=== PATIENT | male | born 1985 | race African-American/Black ===

== ENCOUNTER 2017-03-05 18:03 | Emergency (ER) | payer SELFPAY ==
[2017-03-05 18:08] VITALS: BP 132/78; BMI 34.8
--- NOTE | 2017-03-05 18:35 | DR.GENAD ---
HPI - PCP Primary Care Physician: TORI - HPI Comment HPI Comment: HISTORY BELOW. - Complaint/Symptoms Chief Complaint Doctors Comments: RASH ABDOMINAL WALL TIMES 3 DAYS. IT IS RED, FIRM AND WARM IT IS PAINFUL. NO TENDERNESS. Chief Complaint:: PT C/O RASH TO ABD THAT HAS BEEN THERE FOR 3 DAYS. PT STATES IT IS NOT GETTING ANY BETTER. PT ALSO STATES IT WAS HARD YESTERDAY, BUT HAS SOFTENED UP SOME TODAY. - Nurses notes reviewed Nurses Notes Review: Yes - Source History Provided: Patient - Mode of Arrival Mode of Arrival: Ambulatory - Timing Onset of Chief Complaint: 03/02/17 Came on: Suddenly - Duration Duration: Constant Duration: Days - Severity Severity: Moderate PMH - PMH Past Medical History: No Past Surgical History: No - Family History History of Family Medical Conditions: No - Social History Does patient currently use any type of tobacco product: Yes Have you used tobacco products in the last 12 months: Yes Type of Tobacco Use: Cigarettes Does any household member use tobacco: Yes Alcohol Use: Occasionally Do you use any recreational Drugs:: No Lives With: Family Lives Where: Home - infectious screening In the last 2 months have you had wt loss of >10#?: NO Have you had fever, night sweats or hemotysis?: No Have you traveled outside the country in the last 6 months?: No Isolation: Standard ROS - Review of Systems Constitutional: No Symptoms Reported Eyes: No Symptoms Reported ENTM: No Symptoms Reported Respiratoy: No Symptoms Reported Cardiovascular: No Symptoms Reported Gastrointestinal/Abdominal: No Symptoms Reported Genitourinary: No Symptoms Reported Neurological: No Symptoms Reported Musculoskeletal: No Symptoms Reported Integumentary: Other (ABSCESS/CELLULITIS ABDOMINAL WALL.) Hematologic/Lymphatic: No Symptoms Reported Endocrine: No Symptoms Reported All Other Systems: Reviewed and Negative PE - Vital Signs Vitals: Temperature 98.3 F Pulse Rate 81 Respiratory Rate 20 Blood Pressure 132/78 O2 Sat by Pulse Oximetry 99 - General Limitations: No Limitations General Appearance: Alert - Head Head Exam: Normal Inspection - Eyes Eye exam: Normal Appearance - ENT ENT Exam: Normal Exam External Ear Exam: Normal External Inspection TM/Canal Exam: Bilateral Normal Nose Exam: Normal Nose Exam Mouth Exam: Normal Inspection Throat Exam: Normal Inspection - Neck Neck Exam: Normal Inspection - Chest Chest Inspection: Normal Inspection - Respiratory Respiratory Exam: Normal Lung Sounds Bilat Respiratory Exam: Bilateral Clear to Auscultation - Cardiovascular Cardiovascular Exam: Regular Rate, Normal Rhythm, Normal Heart Sounds - Abdominal Exam Abdominal Exam: Normal Bowel Sounds, Soft, Other (REDNESS, SWELLING AND TENDERNESS ABDOMINAL WALL MIDLINE ABOVE UMBILICUS. NO DRAINAGE.) - Extremities Extremities Exam: Normal Inspection - Back Back Exam: Normal Inspection - Neurologic Neurological Exam: Alert, Oriented X3 - Psychiatric Psychiatric Exam: Normal Affect, Normal Mood - Skin Skin Exam: Erythema MDM - Differential Diagnosis Differential Diagnosis: ABSCESS, CELLULITIS Course - Treatment Treatment: SEE ORDERS - Education/Counseling Education/Counseling: Patient, Education Educated On: Treatment, Diagnosis, Needs for Follow Up - Diagnosis Discharge Problem: Abscess Cellulitis Qualifiers: Site of cellulitis: other site Qualified Code(s): L03.818 - Cellulitis of other sites - Discharge Plan Disposition: 01 HOME, SELF-CARE Condition: Stable Prescriptions: Hydroxyzine Pamoate [Vistaril] 25 mg PO TID PRN #20 cap PRN Reason: Ibuprofen [Motrin Tab 800 mg] 800 mg PO Q8H PRN #20 tab PRN Reason: Pain/Inflammation Sulfamethoxazole-Trimethoprim [BACTRIM DS TAB 800/160 MG *] 1 tab PO BID #20 tab - Follow ups/Referrals Follow ups/Referrals: [facility],None [Primary Care Provider] - 3 days - Instructions Instructions: Cellulitis Additional Instructions: RETURN TO ED IF WORSE.
[2017-03-05] MEDS ORDERED: BACTRIM DS TAB PO ONE ×2 (18:39→18:51)
[2017-03-05] MEDS ORDERED: VISTARIL PO ONE ×2 (18:39→18:51)
[2017-03-05] MEDS ORDERED: MOTRIN TAB 800 MG PO ONE ×2 (18:40→18:51)
== END 2017-03-05 18:55 | disposition home or self-care (01) ==
LOC: ER 18:16
DX: L02.211 Cutaneous abscess of abdominal wall (principal); L03.818 Cellulitis of other sites
CPT/HCPCS: 99282; Q0177